=== PATIENT | male | born 1985 | race Caucasian/White ===

== ENCOUNTER → 2017-04-29 | Outpatient (CLI) | payer OTHER ==
[~2017-04-29] MED LIST: ALEVE220 MG PO; AMITRIPTYLINE10 MG PO; AMOXICILLIN500 M2 PO; APAP/HYDROCODON1 TA9 PO; IBU600 MG PO; IMITREX 25MG TA25 MG PO; KEFLEX 500MG.500 MG PO; LORTAB 10/3251 TAB PO; PREVACID 30MG C30 M1 PO; PRILOSEC40 MG PO; SUMATRIPTAN SUC25 MG PO; TYLENOL W/CODEI1 TA2 PO; ULTRAM50 MG PO
--- NOTE | 2017-04-29 10:08 | RADIOLOGY REPORT PS360 ---
CLAVICLE-LT COMPARISON: Left shoulder 06/07/2015 HISTORY: Follow-up suspected left clavicle fracture TECHNIQUE: 2 views left clavicle FINDINGS: The clavicle appears intact with no definite evidence of recent or old fracture. The AC joint is grossly normal. There are no soft tissue calcifications. IMPRESSION: Grossly negative left clavicle
== END ==
LOC: RAD 09:13
DX: S42.002A Fracture of unspecified part of left clavicle, initial encounter for closed fracture (principal)